=== PATIENT | female | born 1990 | race Two or more races ===

== ENCOUNTER 2024-07-30 14:44 | Inpatient (IN) | payer MEDICAID, SELFPAY ==
[2024-07-30] VITALS (59 sets, daily range): BP systolic 117–143; BP diastolic 71–87; PULSE 53–83; RESP 17–98; TEMP 36.4–36.8; O2SAT 94–99; BMI 34.2
[2024-07-30 13:03] LABS: Basophils % (Auto) 0 % (0-2.5); Eosinophils % (Auto) 0 % (0-10); Hematocrit 38.4 % (36.0-46.0); Hemoglobin 13.4 g/dL (12.0-16.0); Immature Granulocytes % (Auto) 1 % (0-0); Immature Granulocytes Auto 0.03 Thou/mm3 (0.00-0.00); Lymphocytes # (Auto) 0.8 Thou/mm3 (1.0-4.8); Lymphocytes % (Auto) 11 % (10-50); Mean Corpuscular HGB Conc 34.9 g/dl (31.0-37.0); Mean Corpuscular Hemoglobin 30.8 pg (25.0-35.0); Mean Corpuscular Volume 88 fL (80-100); Monocytes # (Auto) 0.5 Thou/mm3 (0.0-0.8); Monocytes % (Auto) 8 % (0-12); Neutrophils # (Auto) 5.3 Thou/mm3 (1.8-7.7); Neutrophils % (Auto) 80 % (37-80); Nucleated Red Blood Cell % 0 /100 WBC (0); Platelet Count 144 Thou/mm3 (140-440); RDW Standard Deviation 41.7 fL (36.4-46.3); Red Blood Count 4.35 Miln/mm3 (4.00-5.20); White Blood Count 6.7 Thou/mm3 (3.6-11.0)
[2024-07-30 13:07] LABS: Collection Type, Urine Clean Catch
[2024-07-30 13:10] LABS: Alanine Aminotransferase 12 U/L (10-49); Albumin, Serum 3.5 gm/dL (3.5-5.0); Albumin/Globulin Ratio 1.7 (1.2-2.2); Alkaline Phosphatase 139 U/L (46-116); Anion Gap 6 (7-16); Aspartate Amino Transferase 16 U/L (0-34); BUN/Creatinine Ratio 11 Ratio (12-20); Bilirubin,Total 0.3 mg/dL (0.3-1.2); Blood Urea Nitrogen 8 mg/dL (9-23); Calcium 8.1 mg/dL (8.3-10.6); Calcium (Corrected) 8.5 mg/dL (8.5-10.1); Carbon Dioxide 23.8 mMol/L (20.0-31.0); Chloride 110 mMol/L (98-107); Creatinine (Component) 0.7 mg/dL (0.6-1.3); Estimated Creatinine Clearance 117.7 mL/min (>60); Globulin 2.1 gm/dL (2.3-3.5); Glucose 69 mg/dL (74-106); LDH (Lactate Dehydrogenase) 173 U/L (120-246); Osmolality,Calculated 275 (275-295); Sodium 140 mMol/L (136-145); Total Protein 5.6 gm/dL (5.7-8.2); Uric Acid 4.3 mg/dL (3.1-7.8); eGFR > 60 See Note
[2024-07-30 13:13] LABS: Fibrinogen 462 mg/dL (175-375); INR 0.9 (0.9-1.3); Partial Thromboplastin Time 27.9 Seconds (22.0-36.0); Prothrombin Time 10.3 Seconds (9.0-12.2)
[2024-07-30 13:39] LABS: Bilirubin,Urine Negative (Negative); Blood,Urine Negative (Negative); Clarity,Urine Clear (Clear/Hazy); Color,Urine Lt Yellow (Lt Yel-Yel); Glucose, Urine Negative (Negative); Ketones,Urine Negative (Negative); Leukocyte Esterase,Urine Negative (Negative); Nitrite,Urine Positive (Negative); PH,Urine 6.5 (5.0-7.0); Protein,Urine Negative (Neg - Trace); Specific Gravity,Urine <= 1.005 (1.001-1.035); Urobilinogen,Urine 0.2 mg/dL (0.0-1.0)
[2024-07-30 13:51] LABS: Creatinine,Random Urine 19 mg/dL (30-125); Protein Total, Random Urine 8 mg/dL (1-14)
[2024-07-30] MEDS: DINOPROSTONE 10 MG VAG.SUPP VAGINAL (16:38)
[2024-07-30 17:24] LABS: Bacteria,Urine 2+; RBC,Urine 2 /hpf (0-3); Squamous Epithelial Cell,Urine 2 /hpf (0-5); WBC,Urine 2 /hpf (0-5)
[2024-07-30] MEDS: cephALEXin 250 MG CAPSULE 500 MG PO (20:29)
[2024-07-30 21:15] LABS: Syphilis Nonreactive (Nonreactive)
--- NOTE | 2024-07-30 21:37 | ESHP_ITS ---
Documentation for date of: 07/30/24 OB Labor/Induct. HPI History of Present Illness Chief complaint: IOL for gestational hypertention : 2 Para: 1 Term pregnancies: 1 pregnancies: 0 Living children: 1 History of Abortions: Spontaneous and Elective: 0 History of Vaginal deliveries: 1 History of sections: No History of : No Date of last menstrual period: 10/29/23 ARABELLA: 08/04/24 Gestational Age (weeks): 39 Gestational Age (days): 2 Gestational age based on last menstrual period: 39 History of present illness: 33-year-old 2 para 1 admit to labor and delivery from the clinic today for elevated blood pressures. Was scheduled for induction next week. Last. October 29, 2023. Estimated due date August 04, 2024. In December patient was 8 weeks and this confirmed seizure. Denies social habits. Denies surgery. Denies chronic illness. Patient is Jehovah witness. She agrees to receiving TXA and tocolytics. Reports movement. Denies contractions.. Patient is A+, antibody screen negative, RPR nonreactive, rubella immune, hepatitis B negative, hep C negative, HIV negative. GC and Chlamydia were negative. GBS negative. 2-hour GTT was negative. NIPT and carrier screens were also negative. And patient had normal anatomy scans with maternal- medicine blood pressures were 140s over 80s. PIH labs normal. Positive nitrites in the urine. Patient was started on Keflex 500 p.o. twice daily History of Present Dating criteria: LMP confirmed by 1st trimester US Adequate Care: Yes Ultrasounds: normal 1st trimester US and normal mid trimester US Obstetrical complications: gestational hypertension Medical complications: none Labs Labs: Positive: Rubella Titre, Negative: RPR, Hepatitis B, HIV, Chlamydia, Gonorrhea and Group Beta Strep and Unknown: Herpes Type 1, Herpes Type 2 and Covid-19 Review of Systems Review of Systems Systems Reviewed: All systems reviewed, normal except as documented Past Medical History Surgical History SURGICAL: Negative Section Meds Home Medications and Allergies Home Medications ?Medication ?Instructions ?Recorded ?Confirmed ?Type prenat.vits,tejinder,mcd-voqj-bcnmf 1 tab PO QDAY 04/08/22 07/30/24 History ferrous sulfate 325 mg (65 mg 325 mg PO QDAY 05/06/22 07/30/24 History iron) tablet aspirin 81 mg tablet,delayed 81 mg PO QDAY 07/30/24 History release (Adult Aspirin Regimen) Allergies Allergy/AdvReac Type Severity Reaction Status Date / Time No Known Allergies Allergy Verified 07/30/24 12:02 OB Exam Physical Exam Vital signs: Temp Pulse Resp BP Pulse Ox O2 Del Method 97.7 F 65 17 141/83 H 98 Room Air 07/30/24 20:20 07/30/24 21:35 07/30/24 20:20 07/30/24 21:35 07/30/24 14:37 07/30/24 11:58 Narrative: Alert and oriented. Normal heart rate and rhythm. Lungs clear no wheezes. Gravid abdomen. Gynecoid pelvis. Estimated weight 7 pounds's 9 ounces. Vaginal ultrasound on admission was 50%, 3, -30. Vertex. Bag hickman intact. heart rate category 1 with accelerations and moderate variability and occasional contraction Routine Cardiovascular Exam Cardiovascular: Present RRR Routine Abdominal Exam Abdominal: Present soft Detailed Labor and Delivery Exam Cervix position: posterior station: -3 Consistency: soft Presentation: Vertex Cervical ripeness score: 5 Membranes: intact Baseline heart rate: 146 monitor accelerations: 15x15 monitor decelerations: None termite renewal inspector variability: Moderate (11-25) Contraction frequency (min): occ Contraction duration (sec): 30 Tachysystole: No Contraction intensity: Mild OB Results Labs 07/30/24 12:40 07/30/24 12:40 Labs: Short CBC 07/30/24 Range/Units 12:40 WBC 6.7 (3.6-11.0) Thou/mm3 Hgb 13.4 (12.0-16.0) g/dL Hct 38.4 (36.0-46.0) % Plt Count 144 (140-440) Thou/mm3 BMP 07/30/24 12:40 Sodium 140 Potassium 4.0 Chloride 110 H Carbon Dioxide 23.8 BUN 8 L Creatinine 0.7 Glucose 69 L Calcium 8.1 L Liver Function 07/30/24 Range/Units 12:40 Total Bilirubin 0.3 (0.3-1.2) mg/dL AST 16 (0-34) U/L ALT 12 (10-49) U/L Alkaline Phosphatase 139 H (46-116) U/L Albumin 3.5 (3.5-5.0) gm/dL Urine 07/30/24 Range/Units 11:00 Urine Color Lt Yellow (Lt Yel-Yel) Urine Clarity Clear (Clear/Hazy) Urine pH 6.5 (5.0-7.0) Ur Specific [place] <= 1.005 (1.001-1.035) Urine Protein Negative (Neg - Trace) Urine Glucose (UA) Negative (Negative) OB Assessment & Plan Assessment and Plan (1) Normal labor and delivery: Status: Acute Additional Plan Induction method: per misoprostol protocol Plan: induction, anticipate NVD and consult MD siddiqui
[2024-07-30] MEDS: RINGERS LACTATED 1000 ML 1,000 ML 100 ML IV (23:24)
[2024-07-31] VITALS (96 sets, daily range): BP systolic 105–167; BP diastolic 55–96; PULSE 54–83; RESP 16–20; TEMP 36.6–37; O2SAT 92–98
[2024-07-31] MEDS: MINERAL OIL 30 ML UDC TOP (04:17)
[2024-07-31] MEDS: MISOPROSTOL 200 mCg TABLET 800 MCG PR (04:18)
[2024-07-31] MEDS: OXYTOCIN INJ 10 UNIT/ML VIAL IM (04:24)
[2024-07-31] MEDS: OXYTOCIN in NS 20 units 20 UNIT/1,000 ML BAG 125 UNIT IV (04:25)
[2024-07-31] MEDS: TRANEXAMIC ACID 1,000 MG IVPB 1,000 MG/100 ML BAG 200 MG IV (04:55)
[2024-07-31] MEDS: BENZO/LANO/ALOE (Dermoplast) 60 GM CAN 1 SPRAY TOP (04:57)
--- NOTE | 2024-07-31 04:57 | PD.LDDELS ---
Data (Self) Data Hx Section: No : 2 Term: 1 : 0 Livin Abortions: Spontaneous & Theraputic: 0 Delivery Data (Self) Labor Data Initiation of labor: Induction Induction/Augmentation Agent: Cervidil ROM date: 07/31/24 ROM time: 03:44 Amniotic membrane rupture type: Spontaneous Amniotic fluid description: Clear Delivery Data EDC: 08/04/24 EDC calculated by:: LMP/early US confirmation Date of arrival to unit: 07/30/24 Time of arrival to unit: 14:44 Onset of labor date: 07/30/24 Onset of labor time: 21:30 Complete dilation date: 07/31/24 Complete dilation time: 03:08 delivery date: 07/31/24 delivery time: 04:18 Gestational age (weeks): 39 Gestational age (days): 3 Placenta delivery date: 07/31/24 Placenta delivery time: 04:24 Stage 1 total time: Labor - Stage 1 Duration 5 hours and 38 minutes Delivered by: Iris Mancuso Delivery nurse: ALETHEA GAO [place] nurse: mary gao Tin Flipper at delivery: No Support person(s) at delivery: José father of the baby, Jacqueline patients mother Delivery Method Delivery method: Normal Vaginal Delivery Presentation: Vertex position: OA Anesthesia Type Anesthesia Type: Epidural Delivery Room Medications Delivery room medications: Pitocin 10 u IM, Pitocin 20 u IV and Cytotec 800 [place] Placenta Placenta delivery description: Spontaneous (placenta inspected, complete) Cord blood sent to lab: Yes cord blood collection: Cord Blood Type Episiotomy Episiotomy description: None Lacerations #1: Vaginal: 1st degree Perineal repair Sutures used for repair: 3.0 Vicryl EBL Estimated blood loss (ml): 400 Umbilical Cord cord description: 3 Vessels [place] Data (Self) [place] Data [place] gender: Female Identification band number: [id number] weight (gms): 3725 g Weight (pounds): 8 lbs and 3.4 ozs 1 minute: 9 5 minutes: 9
[2024-07-31] MEDS: ACETAMINOPHEN 325 MG TABLET 650 MG PO (05:47)
[2024-07-31] MEDS: cephALEXin 250 MG CAPSULE 500 MG PO ×2 (08:42→21:50)
[2024-07-31] MEDS: DOCUSATE SOD 100 MG CAPSULE PO ×2 (08:42→21:49)
[2024-07-31] MEDS: IBUPROFEN TAB 400 MG TABLET 800 MG PO (10:32)
[2024-07-31 13:47] LABS: Basophils % (Auto) 0 % (0-2.5); Eosinophils % (Auto) 0 % (0-10); Hematocrit 39.1 % (36.0-46.0); Hemoglobin 13.6 g/dL (12.0-16.0); Immature Granulocytes % (Auto) 1 % (0-0); Immature Granulocytes Auto 0.05 Thou/mm3 (0.00-0.00); Lymphocytes # (Auto) 0.8 Thou/mm3 (1.0-4.8); Lymphocytes % (Auto) 8 % (10-50); Mean Corpuscular HGB Conc 34.8 g/dl (31.0-37.0); Mean Corpuscular Hemoglobin 30.8 pg (25.0-35.0); Mean Corpuscular Volume 89 fL (80-100); Monocytes # (Auto) 0.6 Thou/mm3 (0.0-0.8); Monocytes % (Auto) 5 % (0-12); Neutrophils # (Auto) 9.6 Thou/mm3 (1.8-7.7); Neutrophils % (Auto) 87 % (37-80); Nucleated Red Blood Cell % 0 /100 WBC (0); Platelet Count 137 Thou/mm3 (140-440); RDW Standard Deviation 42.2 fL (36.4-46.3); Red Blood Count 4.41 Miln/mm3 (4.00-5.20)
--- NOTE | 2024-07-31 17:31 | PC.NURSE ---
Dr. Lomeli called made aware of elevated bp readings, per MD she is aware of pts past medical history of preemclapsia, no intervention needed at this time. RN to call MD if bp is <160 sytolic or < 110 diastolic x2 readings 10-15 min apart or if pt becomes symptomatic.
[2024-08-01] VITALS: BP 125/79; PULSE 76; RESP 16; TEMP 36.9; O2SAT 96
[2024-08-01 04:00] VITALS: BP 142/84; PULSE 56; RESP 18; TEMP 36.4; O2SAT 97
--- NOTE | 2024-08-01 06:47 | ESPR_ITS ---
Subjective Subjective Interval history: No complaints of pain. No dizziness. Bonding breast-feeding Exam Vital Signs Temp Pulse Resp BP Pulse Ox O2 Del Method 97.6 F 56 L 18 142/84 H 97 Room Air 08/01/24 04:00 08/01/24 04:00 08/01/24 04:00 08/01/24 04:00 08/01/24 04:00 08/01/24 04:00 Narrative Exam Vital signs stable afebrile. Pressure soft. Fundus firm below the umbilicus. Perineum intact no swelling. Small lochia. Uterus well involuted. Negative Homans' sign. 2+ DTRs Objective Labs 07/31/24 13:16 07/30/24 12:40 Labs: Laboratory Results - last 24 hr 07/31/24 13:16 WBC 11.0 D RBC 4.41 Hgb 13.6 Hct 39.1 MCV 89 MCH 30.8 MCHC 34.8 RDW Std Deviation 42.2 Plt Count 137 L Neut % (Auto) 87 H Lymph % (Auto) 8 L [place] % (Auto) 5 Eos % (Auto) 0 Baso % (Auto) 0 Neut # (Auto) 9.6 H Lymph # (Auto) 0.8 L [place] # (Auto) 0.6 Eos # (Auto) 0.0 Baso # (Auto) 0.0 Immature Gran # (Auto) 0.05 H Absolute Nucleated RBC 0.00 Immature Gran % 1 H Nucleated RBC % 0 Assessment & Plan Problem List (1) Normal labor and delivery: Status: Acute Assessment Comment Assessment comment: 24 hr pp Plan Comment Plan Comment: Discharge home with baby. Discussed PIH precautions. Patient will be sent home on labetalol 100 p.o. twice daily. Keflex 500 p.o. twice daily x 7 days. Increase fluids and rest. Discussed wound care and comfort measures. Discussed ER. Precautions and parameters. Discussed signs and symptoms of infection. Schedule with OB in a week to evaluate blood pressure Time Spent With Patient Time: Total time spent is greater than 50% in coordination of care (as documented) at patient's floor/unit and/or counseling patient:
--- NOTE | 2024-08-01 06:50 | ESDS_ITS ---
DS: Providers Provider Date of admission: 07/30/24 14:44 Primary care physician: Gabriel Mcwilliams MD Admitting Provider: Alek Pritchett MD Attending Provider on Admission: Dionna Mancuso CNM Consults: 07/31/24 05:32 Referral Routine Comment: Attending Provider on DC: Dionna Mancuso CNM Discharging Provider: Dionna Mancuso CNM DS: Diagnosis Problem List Completed Was Problem List Reviewed/Reconciled?: Yes Summary/Hosp Course Brief History: 33-year-old 2 para 1 admit to labor and delivery from the clinic today for elevated blood pressures. Was scheduled for induction next week. Last. October 29, 2023. Estimated due date August 04, 2024. In December patient was 8 weeks and this confirmed seizure. Denies social habits. Denies surgery. Denies chronic illness. Patient is Jehovah witness. She agrees to receiving TXA and tocolytics. Reports movement. Denies contractions.. Patient is A+, antibody screen negative, RPR nonreactive, rubella immune, hepatitis B negative, hep C negative, HIV negative. GC and Chlamydia were negative. GBS negative. 2-hour GTT was negative. NIPT and carrier screens were also negative. And patient had normal anatomy scans with maternal- medicine blood pressures were 140s over 80s. PIH labs normal. Positive nitrites in the urine. Patient was started on Keflex 500 p.o. twice daily Peripartum Data Delivery Method: Normal Vaginal Delivery Episiotomy Description: None Laceration Description: yes (small vaginal laceration) complications: none Time Spent with Patient Time attestation: Total time spent providing and/or coordinating discharge services: Exam Vital Signs Temp Pulse Resp BP Pulse Ox O2 Del Method 97.6 F 56 L 18 142/84 H 97 Room Air 08/01/24 04:00 08/01/24 04:00 08/01/24 04:00 08/01/24 04:00 08/01/24 04:00 08/01/24 04:00 Discharge Plan Plan Patient Disposition: HOME (Self Care) Patient condition on transfer: Stable Prescriptions/Referrals Prescriptions/Med Rec: New labetalol 200 mg tablet 200 mg PO BID Qty: 30 0RF cephalexin 500 mg capsule 500 mg PO BID 7 Days Qty: 14 0RF No Action Vitamin Tablet 1 tab PO QDAY ferrous sulfate 325 mg (65 mg iron) Tablet 325 mg PO QDAY aspirin [Adult Aspirin Regimen] 81 mg tablet,delayed release (DR/EC) 81 mg PO QDAY Referrals: Gabriel Mcwilliams MD [Primary Care Provider] - Patient/Caregiver Discharge Instructions Meds to Beds: No Discharge Activity: activity as tolerated and resume usual activities Other Discharge Activity Instructions:: make follow up appointment with OB in 4- 6wks. return as instructed. Education Materials: After a Vaginal , Breast Care After , : Caring for Yourself Print Language: Latvian Activity Restrictions/Additional Instructions: Discharge home with baby today. Reviewed PIH precautions and symptoms. Disc harged home on labetalol 200 mg p.o. twice daily. 30 tabs given. Keflex 500 p.o. twice daily x 7 days. Increase fluids. I gave ER precautions and parameters. Discussed danger signs and symptoms. Discussed signs and symptoms of infection. Discussed comfort measures for vaginal laceration. Make an appointment with OB in a week for follow-up on BP Stand Alone Forms: [employer] Award Info., Patient Portal Info Letter Discharge Order Discharge Orders: Discharge (Routine); Ordered 08/01/24 Ordered By: Dionna Mancuso Planned Discharge Date 08/01/24
[2024-08-01 07:10] VITALS: BP 111/67; PULSE 59; RESP 18; TEMP 36.8
[2024-08-01] MEDS: DOCUSATE SOD 100 MG CAPSULE PO (07:22)
[2024-08-01] MEDS: cephALEXin 250 MG CAPSULE 500 MG PO (07:22)
== END 2024-08-01 08:46 | disposition home or self-care (01) | DRG 560 ==
LOC: CNST 14:45 → S4SX 14:45 → S4NX 07-31 08:43
PROVIDERS: Admitting Provider Obstetrics & Gynecology; PCP Family Medicine; Referring Provider Obstetrics & Gynecology; Visit Provider Advanced Practice Midwife
DX: O13.4 Gestational [pregnancy-induced] hypertension without significant proteinuria, complicating childbirth (principal); Z37.0 Single live birth; Z3A.39 39 weeks gestation of pregnancy; O70.0 First degree perineal laceration during delivery
CPT/HCPCS: 36415; 59025; 59409; 80053; 81001; 82570; 83615; 84156; 84550; 85025; 85384; 85610; 85730; 86780; 86850; 86900; 86901; 87077; 87086; 87186; 94762; J2590; J2795; J3010; J3490; J7120; S0191; A9270